=== PATIENT | female | born 1985 | race Caucasian/White ===

== ENCOUNTER 2019-07-21 14:20 | Outpatient (CLI) | payer OTHER, SELFPAY ==
[2019-07-24 15:49] LABS: Antimullerian Hormone 6.7 ng/mL (0.9-9.5)
== END 2019-07-21 14:40 ==
PROVIDERS: PCP Internal Medicine; Visit Provider Obstetrics & Gynecology Gynecology
DX: Z31.69 Encounter for other general counseling and advice on procreation (principal)
CPT/HCPCS: 36415; 83520

== ENCOUNTER 2020-05-03 10:26 | Outpatient (REF) | payer OTHER, SELFPAY ==
--- NOTE | 2020-05-03 10:00 | PAPFT_PTH ---
PATIENT: Naz Jonas LOC: [facility] U#:[id number] AGE/SX: 35/F ROOM: RE05/03/[address]: Rosa Mathew : 1985 BED: DIS: 05/03/2020 SPEC #: [id number] RECD: 05/03/20 13:02 STATUS: MICHELLE REEmeli #: [id number] NOEMI: 05/03/20 10:[address]: Rosa Mathew DEPT: [facility] Cytology RECD BY: Lashaun Yu ENTERED: 05/03/20 13:03 SP TYPE: PAPFT OTHR DR: Sosa Eisenberg Tissues: 1 - CX/ENDOCX FOR PAP SMEARS Procedures: PAP THIN PREP/UVM Screening HPV DNA PROBE Comments: [id number] ([id number] [facility])
== END 2020-05-03 10:46 ==
LOC: LBN 10:26
PROVIDERS: PCP Internal Medicine; Visit Provider Obstetrics & Gynecology Gynecology
DX: Z12.4 Encounter for screening for malignant neoplasm of cervix (principal); Z11.51 Encounter for screening for human papillomavirus (HPV)
CPT/HCPCS: 88142; 87624

== ENCOUNTER 2020-06-16 03:47 | Outpatient (CLI) | payer OTHER, SELFPAY ==
--- NOTE | 2020-06-16 07:15 | DI.US_ITS ---
EXAM: US PELVIS TRANSVAGINAL CLINICAL HISTORY: r ovarian cyst,N83.209 TECHNIQUE: Ultrasound performed using standard protocol. COMPARISON: No exams were available for comparison FINDINGS: Pelvic ultrasound was performed transabdominally and transvaginally. The patient's IUD lies in the c ervical canal. Endometrial stripe is homogeneous in appearance with a few 5 millimeter thickness. There are multiple uterine fibroids, the largest measuring approximately 4 cm in greatest diameter in the posterior uterine fundus. Ovaries have a normal follicular appearance. Right ovary measures 33 x 20 x 21 millimeters, left ova ry measures 29 x 13 x 22 millimeters. The kidneys are unremarkable in appearance on limited scanning. No free fluid identified in the cul-de-sac. IMPRESSION: IUD lies in the cervical canal. Examination is otherwise within normal limits. DATA REPOSITORY:
== END 2020-06-16 04:07 ==
PROVIDERS: PCP Family Medicine; Visit Provider Obstetrics & Gynecology Gynecology
DX: N83.201 Unspecified ovarian cyst, right side (principal); Z97.5 Presence of (intrauterine) contraceptive device
CPT/HCPCS: 76830; 76856

== ENCOUNTER 2020-08-17 02:24 | Outpatient (CLI) | payer OTHER, SELFPAY ==
--- NOTE | 2020-08-17 06:15 | DI.US_ITS ---
EXAM: US PELVIS TRANSVAGINAL CLINICAL HISTORY: recheck position of Paragard IUD,z97.5,repositioned after slipped into endo TECHNIQUE: Transabdominal and transvaginal imaging was performed using standard protocol. COMPARISON: US US PELVIS TRANSVAGINAL from 06/16/2020 FINDINGS: KIDNEYS: Kidneys are symmetric in size. No evidence of renal calculi. No evidence of hydronephrosis. No renal mass or cyst identified. UTERUS: Anteverted. 7.7 x 3.9 x 6.1 cm. 4 centimeter right-sided myometrial fibroid. Endometrium: 11 millimeters. Homogeneous. Cervix: IUD is seen positioned in the cervix. OVARIES: Right: Cyst or mass: Involuting follicle. Left: Cyst or mass: Normal follicles. Dilated tubular structure adjacent to the left ovary consisten t with hydrosalpinx. DOPPLER: Color: Symmetric and uniform flow to both ovaries. No hyperemia. Duplex: Normal ovarian arterial waveforms visualized. CUL-DE-SAC: Free fluid: None. IMPRESSION: 1. IUD is position within the cervical canal. Uterine fibroid. 2. Left hydrosalpinx. DATA REPOSITORY:
== END 2020-08-17 02:25 ==
LOC: DI 02:24
PROVIDERS: PCP Family Medicine; Visit Provider Obstetrics & Gynecology Gynecology
DX: Z97.5 Presence of (intrauterine) contraceptive device (principal); D25.9 Leiomyoma of uterus, unspecified; N70.11 Chronic salpingitis
CPT/HCPCS: 76830; 76856

== ENCOUNTER 2021-07-25 01:12 | Outpatient (CLI) | payer OTHER, SELFPAY ==
--- NOTE | 2021-07-25 | DI.US_ITS ---
Exam(s) US BREAST RT COMPLETE MG MAMMO DIAGNOSTIC BI EXAM: MG MAMMO DIAGNOSTIC BI AND COMPLETE RIGHT BREAST ULTRASOUND CLINICAL HISTORY: R breast cyst 9 o'clock position,RT BREAST LUMP,N63.0. TECHNIQUE: Both CC and MLO views of both breasts were obtained with 3D tomosynthesis technique and u tilizing computer aided detection (CAD). Also performed 2 additional spot compression views of the r ight breast. Complete right breast ultrasound was performed, including all 4 quadrants as well as the retroareolar region and right axilla. COMPARISON: None. This is the 1st mammogram for this 36-year-old patient who apparently feels a pos sible lump at 9-10 o'clock position of the right breast. Upon question she informs me that her husba nd feels that there is a lump at this location; she claims that this area has felt similar for many y ears. She also informs me that she had been previously treated in the past for mastitis in the right breast, not related to breast feeding nor piercing. She has not had a recent bout of mastitis, nipp le discharge, or breast skin discoloration. FINDINGS: DIAGNOSTIC BILATERAL MAMMOGRAM: Fibroglandular tissue is moderately dense bilaterally which somewhat decreases the sensitivity of the mammogram for finding hidden underlying lesions. There are no significant focal findings in the left breast. In the right breast in the area of concern (skin marker placed) there is an asymmetric density measur ing approximately 3.3 x 3.0 cm, best seen on the conventional MLO view. The 3D imaging through this region (including the spot compression 3D views) is less convincing for an easily discernible/definab le mass. There are no malignant-appearing microcalcification groups in this region nor elsewhere in either breast. No obvious architectural distortion or skin thickening-retraction. COMPLETE RIGHT BREAST ULTRASOUND: There are multiple microcysts, the largest located at the 1 o'clock position approximately 1 centimet er from the nipple and measuring 9 x 6 millimeters. At the 8 o'clock position there is a 1.6 x 0.7 cm finding which is isoechoic to the surrounding breas t tissue but a slightly different orientation. There is a possibility that this may represent a subt le fibroadenoma. This exhibits slightly increased through transmission. No decreased through transm ission. This does not correspond to her apparent palpable finding. At the 9 o'clock position there is an area of asymmetric tissue which exhibits both solid and cystic components, the largest cystic component measuring 6 by 3 millimeters. This has the appearance of fi brocystic-type tissue. Exhibits some mild increased through transmission. No decreased through lopez smission. This entire area measures approximately 1.6 x 0.8 cm. Also in the same area but slightly more peripherally is an area of asymmetric dense tissue which does not appear pathologic. At the 1 o'clock position there is a an area measuring approximately 2.2 x 1.2 cm which has quite sim ilar appearance to the 9 o'clock position finding but is not in the region of apparent clinical seble rn. Right axilla is negative for significant adenopathy. IMPRESSION: 1. No radiographic evidence of malignancy in left breast. 2. Asymmetric density on the mammogram in the area of palpable finding in the right breast. On ultra sound examination of this area there is a 1.6 x 0.8cm finding which has appearance of fibrocystic-typ e tissue or possibly partially cystic fibroadenoma. There is also a very subtle suggestion of a poss ible isoechoic fibroadenoma at 8 o'clock position. There also multiple microcysts in the right breas t. I feel that appropriate follow-up here would be repeat breast ultrasound in 3 months to restudy these areas. I feel at that time that she should undergo a bilateral breast ultrasound exam given the abo ve findings and the density of her breast tissue on mammography. Of course, earlier imaging would be performed if the patient feels that this area is increasing in size. . The patient was informed of the findings and follow-up recommendations prior to leaving the [facility] today. BI-RADS Category 3 - 3 month - Probably Benign Finding: Recommend follow-up breast imaging as describ ed above in 3 months Breast Density - Category C - Heterogeneously dense Breast density Category C or D implies that the patient has dense breast tissue. Dense breast tissue can make it harder to find cancer on a mammogram. Dense breast tissue is also associated with an incr eased risk of breast cancer. This information about the result of the mammogram report was provided to the patient to raise their awareness. Use this report when you speak with the patient about their risks for breast cancer, which includes their family history. At that time, you may recommend additional screening tests (Ultrasoun d or MRI) as these tests may add significant information. A negative radiographic report should not delay biopsy if a dominant or clinically suspicious mass is present. Up to ten percent of cancers are not identified on mammography. A negative report may reinforce clinical impression. Adenosis and dense breasts may obscure an underlying neoplasm. False positive reports average 6 to 10%. Patient will receive a letter notifying them of these results.
== END 2021-07-25 01:32 ==
PROVIDERS: PCP Family Medicine; Visit Provider Obstetrics & Gynecology Gynecology
DX: N63.11 Unspecified lump in the right breast, upper outer quadrant (principal); R92.8 Other abnormal and inconclusive findings on diagnostic imaging of breast
CPT/HCPCS: 76642; 77062; 77066; G0279

== ENCOUNTER 2022-07-31 02:31 | Outpatient (CLI) | payer OTHER, SELFPAY ==
--- NOTE | 2022-07-31 07:28 | DI.MAMMO_ITS ---
Exam(s) MG MAMMO DIAGNOSTIC UNI US BREAST RT COMPLETE EXAM: MG MAMMO DIAGNOSTIC UNI-RIGHT AND COMPLETE RIGHT BREAST ULTRASOUND CLINICAL HISTORY: F/U 11/10/21,RT BREAST CYSTS. TECHNIQUE: Both CC and MLO views the right breast were obtained with 3D tomosynthesis technique and utilizing computer aided detection (CAD). Complete ultrasound examination right breast performed including all 4 quadrants. Also scanned the r ight axilla. COMPARISON: Prior mammograms and ultrasound examinations were reviewed. FINDINGS: DIAGNOSTIC RIGHT BREAST MAMMOGRAM: The fibroglandular tissue is again noted be moderately dense. There are no new obvious spiculated ma sses nor malignant-appearing microcalcification groups. No new architectural distortion or skin thic kening-traction. COMPLETE RIGHT BREAST ULTRASOUND: 12 o'clock position there is a 7 x 5 millimeter benign microcyst. At the 6 o'clock position there is a 7 x 4 millimeter microcyst. At the 8 o'clock position there is again noted the previously described finding which is again unchan ged from the prior study and has benign appearance. This is either an extremely subtle 2.5 x 0.8 cm fibroadenoma or just fibroglandular tissue. Benign appearance. At the 10 o'clock position there is a small conglomeration microcysts measuring 8 x 7 millimeters. A lso at 10 o'clock position is a microcyst measuring 5 x 5 millimeters. IMPRESSION: Stable benign-appearing mammographic and ultrasound findings in the right breast. Appropriate follow-up is to keep this patient on a yearly mammogram schedule, with earlier imaging if a self detected breast change is noted.. The patient was informed of the findings and follow-up recommendations by myself prior to leaving the department today. BI-RADS Category 2 - Benign Findings Breast Density - Category C - Heterogeneously dense Breast density Category C or D implies that the patient has dense breast tissue. Dense breast tissue can make it harder to find cancer on a mammogram. Dense breast tissue is also associated with an incr eased risk of breast cancer. This information about the result of the mammogram report was provided to the patient to raise their awareness. Use this report when you speak with the patient about their risks for breast cancer, which includes their family history. At that time, you may recommend additional screening tests (Ultrasoun d or MRI) as these tests may add significant information. A negative radiographic report should not delay biopsy if a dominant or clinically suspicious mass is present. Up to ten percent of cancers are not identified on mammography. A negative report may reinforce clinical impression. Adenosis and dense breasts may obscure an underlying neoplasm. False positive reports average 6 to 10%. Patient will receive a letter notifying them of these results.
== END 2022-07-31 02:51 ==
PROVIDERS: PCP Family Medicine; Visit Provider Obstetrics & Gynecology Gynecology
DX: N60.11 Diffuse cystic mastopathy of right breast (principal); N60.81 Other benign mammary dysplasias of right breast
CPT/HCPCS: 76642; 77061; 77065; G0279

== ENCOUNTER → 2023-09-30 04:13 | Outpatient (CLI) | payer OTHER, SELFPAY ==
--- NOTE | 2023-09-30 13:10 | DI.MAMMO_ITS ---
Exam(s) MAMMO SCREENING EXAM: MAMMO SCREENING CLINICAL HISTORY: screening,Z12.39 TECHNIQUE: Mammograms were interpreted according to the usual protocol including computer analysis w [employer] CAD system, tomosynthesis and C-view imaging. COMPARISON: 2021 and 2022 FINDINGS: The breasts are composed of heterogeneously dense fibroglandular densities, Breast Density category C . No suspicious masses or suspicious microcalcifications are seen. No skin thickening or abnormal axillary lymph nodes are seen. There has been no significant change from prior exams. IMPRESSION: BI-RADS Category 1, Negative mammogram. Yearly screening mammography is recommended. Breast Density Category C, heterogeneously Dense. The mammogram demonstrates the patient's breast tissue is dense. Dense breast tissue is very common a nd is not abnormal but dense breast tissue can make it harder to find cancer on a mammogram. Also, de nse breast tissue may increase breast cancer risk. This information about the result of the mammogram report was provided to the patient to raise their awareness. Use this report when you speak with the patient about their risks for breast cancer, which includes their family history. At that time, you may recommend additional screening tests (Ultrasound or MRI) as they might be useful based on their r isk. A negative radiographic report should not delay biopsy if a dominant or clinically suspicious mass is present. Up to ten percent of cancers are not identified on mammography. A negative report may reinforce clinical impression. Adenosis and dense breasts may obscure an underlying neoplasm. False positive reports average 6 to 10%.
== END ==
PROVIDERS: PCP Family Medicine; Visit Provider Obstetrics & Gynecology
DX: Z12.31 Encounter for screening mammogram for malignant neoplasm of breast (principal)
CPT/HCPCS: 77063; 77067

== ENCOUNTER 2025-04-05 02:46 | Outpatient (CLI) | payer OTHER, SELFPAY ==
--- NOTE | 2025-04-05 05:57 | DI.MAMMO_ITS ---
Exam(s) MAMMO SCREENING EXAM: MAMMO SCREENING CLINICAL HISTORY: screening,z12.31. TECHNIQUE: Bilateral full field digital CC and MLO mammographic images were obtained with 3D tomosynthesis and utilizing computer aided detection (CAD). COMPARISON: Prior mammograms were reviewed. FINDINGS: No new significant left breast findings. Right breast on the 3D MLO view there is a group of microcalcifications best seen on the MLO view located 7 cm in from the nipple There is no associated mass. There is no significant architectural distortion nor skin thickening-retraction. IMPRESSION: 1. No radiographic evidence of malignancy in left breast. 2. Small focal microcalcification group seen in the right breast on the MLO tomosynthesis views which is more evident than on prior mammograms. Recommend spot Mag views. BI-RADS Category 0 - Incomplete: Need additional imaging evaluation Breast Density - Category C - The breast are heterogeneously dense, which may obscure small masses. Breast density Category C or D implies that the patient has dense breast tissue. Dense breast tissue can make it harder to find cancer on a mammogram. Dense breast tissue is also associated with an increased risk of breast cancer. This information about the result of the mammogram report was provided to the patient to raise their awareness. Use this report when you speak with the patient about their risks for breast cancer, which includes their family history. At that time, you may recommend additional screening tests (Ultrasound or MRI) as these tests may add significant information. A negative radiographic report should not delay biopsy if a dominant or clinically suspicious mass is present. Up to ten percent of cancers are not identified on mammography. A negative report may reinforce clinical impression. Adenosis and dense breasts may obscure an underlying neoplasm. False positive reports average 6 to 10%. Patient will receive a letter notifying them of these results.
== END 2025-04-05 03:06 ==
LOC: DI 02:47
PROVIDERS: PCP Family Medicine; Visit Provider Obstetrics & Gynecology
DX: Z12.31 Encounter for screening mammogram for malignant neoplasm of breast (principal)
CPT/HCPCS: 77063; 77067

== ENCOUNTER 2025-04-07 03:36 | Outpatient (CLI) | payer OTHER, SELFPAY ==
--- NOTE | 2025-04-07 09:48 | DI.MAMMO_ITS ---
Exam(s) MAMMO SCREEN CALL BACK UNI EXAM: MAMMO SCREEN CALL BACK UNI INDICATION: F/U ABNL MAMMO, R92.8,SMALL MICROCALCIFICATION GROUP RT BREAST MLO. COMPARISON: [facility] MAMMO SCREENING from 04/05/2025 and exams back to 2021 TECHNIQUE: Spot magnification MLO views were performed. FINDINGS: There are scattered benign-appearing calcifications in the superior right breast. No suspicious clusters. No significant change from prior exams. IMPRESSION: Benign-appearing calcifications. Annual screening mammography is recommended. BI-RADS Category 2 - Benign Findings Breast Density - Category C - The breast are heterogeneously dense, which may obscure small masses. Breast density Category C or D implies that the patient has dense breast tissue. Dense breast tissue can make it harder to find cancer on a mammogram. Dense breast tissue is also associated with an increased risk of breast cancer. This information about the result of the mammogram report was provided to the patient to raise their awareness. Use this report when you speak with the patient about their risks for breast cancer, which includes their family history. At that time, you may recommend additional screening tests (Ultrasound or MRI) as these tests may add significant information. A negative radiographic report should not delay biopsy if a dominant or clinically suspicious mass is present. Up to ten percent of cancers are not identified on mammography. A negative report may reinforce clinical impression. Adenosis and dense breasts may obscure an underlying neoplasm. False positive reports average 6 to 10%. Patient will receive a letter notifying them of these results.
== END 2025-04-07 03:56 ==
LOC: DI 03:36
PROVIDERS: PCP Family Medicine; Visit Provider Obstetrics & Gynecology
DX: Z12.31 Encounter for screening mammogram for malignant neoplasm of breast (principal); R92.8 Other abnormal and inconclusive findings on diagnostic imaging of breast
CPT/HCPCS: 77063; 77067

== ENCOUNTER 2025-05-20 12:54 | Outpatient (REF) | payer OTHER, SELFPAY ==
--- NOTE | 2025-05-20 12:15 | PAPFT_PTH ---
PATIENT: Naz Jonas LOC: [facility] U#:[id number] AGE/SX: 40/F ROOM: RE05/20/[address]: Sadie Salazar MD : 1985 BED: DIS: 05/20/2025 SPEC #: [id number] RECD: 05/20/25 17:23 STATUS: MICHELLE REEmeli #: [id number] NOEMI: 05/20/25 12:[address]: Sadie Salazar DEPT: [facility] Cytology RECD BY: Lashaun Yu ENTERED: 05/20/25 17:23 SP TYPE: PAPFT OTHR DR: Roly Turpin Tissues: 1 - CX/ENDOCX FOR PAP SMEARS Procedures: PAP THIN PREP/UVM Screening HPV DNA PROBE Comments: [id number] (HPV 16 & 18/45)
== END 2025-05-20 12:55 | disposition home or self-care (01) ==
LOC: LBN 12:54
PROVIDERS: PCP Family Medicine; Visit Provider Obstetrics & Gynecology
DX: Z12.4 Encounter for screening for malignant neoplasm of cervix (principal)
CPT/HCPCS: 88142; 87624